=== PATIENT | female | born 1950 | race Caucasian/White ===

== ENCOUNTER → 2016-07-23 | Emergency (ER) | payer OTHER ==
--- NOTE | 2016-07-23 12:02 | ED ORDER SUMMARY ---
..... Patient: JULIUS CORDERO OrderSheet [facility] VisitID: [id number] [address] [place] [address] 66y, F Registration Date/Time: 07/23/2016 ORDER SHEET Weight: 70.3 kg (stated) Allergies: Keflex GENERAL ORDERS: MEDICATION ORDERS: Lidocaine Injection 2 % (soln) (NOW) (11:23 07/23/2016 Yeimy Benavidez) (Ack 12:00 Shivani R.NDonnie) (12:30 Jaime Lawton.NDonnie) IV FLUIDS: ORDER SHEET NOTES: [Electronically signed by Jessica Beck R.N. (12:54 07/23/2016)] [Electronically signed by Cyrus Mead Dr. (14:16 07/23/2016)] [Electronically locked/signed by Jessica Beck R.N. (12:54 07/23/2016)]
--- NOTE | 2016-07-23 12:02 | ED ORDER SUMMARY ---
..... Patient: JULIUS CORDERO OrderSheet [facility] VisitID: [id number] [address] [place] [address] 66y, F Registration Date/Time: 07/23/2016 ORDER SHEET Weight: 70.3 kg (stated) Allergies: Keflex GENERAL ORDERS: MEDICATION ORDERS: Lidocaine Injection 2 % (soln) (NOW) (11:23 07/23/2016 Yeimy Benavidez) (Ack 12:00 Shivani R.NDonnie) (12:30 Jaime Lawton.NDonnie) IV FLUIDS: ORDER SHEET NOTES: [Electronically signed by Jessica Beck R.N. (12:54 07/23/2016)] [Electronically signed by Cyrus Mead Dr. (14:16 07/23/2016)] [Electronically locked/signed by Jessica Beck R.N. (12:54 07/23/2016)]
--- NOTE | 2016-07-23 12:02 | ED NURSING NOTES ---
Clinical Report - Nurses [facility] [place] [address] 07/23/2016 11:06 [id number] TRI[facility] Triage time 11:14. Acuity: LEVEL 5. Chief Complaint: INJURY TO THE LEFT THUMB. LYN COMA SCORE: Lyn Coma Scale: 15- eyes open spontaneously (4); best verbal response- oriented x 4 (5); best motor response- obeys commands (6). --11:20 Jessica Beck R.N. 11:14 07/23/16. BP: 139/76. HR: 81. RR: 16. O2 saturation: 98%. Temp: 92 F. Pain level now: 08/03. Additional comments: 08/03 left thumb. --11:20 Jessica Beck R.N. Weight: 70.3 kg stated. Height/Length: 64 inches Per Patient. BMI: 26.6. --11:17 Jessica Beck R.N. Medications Gabapentin Oral 300 mg, 2x a day. --11:18 Jessica Beck R.N. Anastrozole Oral unknown. --11:19 Jessica Beck R.N. Allergies Keflex. --11:17 Jessica Beck R.N. History Arrived by private vehicle. Historian: patient. Accompanied by friend. ( Sliced thumb with a journal box inspector.). Treatment FRONT DESK MONITOR: (compression bandage). FALL RISK ASSESSMENT: Fall risk assessment completed. No fall risk identified. NUTRITIONAL RISK ASSESSMENT: The nutritional risk assessment revealed no deficiencies. FUNCTIONAL ASSESSMENT: Functional assessment: no impairments noted. LEARNING NEEDS ASSESSMENT: The learning needs assessment revealed no barriers. SKIN INTEGRITY ASSESSMENT: Skin integrity risk assessment completed. No skin integrity risk identified. --11:20 Jessica Beck R.N. PROBLEMS: Cancer. --11:20 Jessica Beck R.N. Assessment The patient states feels the same. --11:20 Jessica Beck R.N. Interventions ID band on patient. --11:20 Jessica Beck R.N. PHYSICAL ASSESSMENT Ambulatory to room. GENERAL / NEURO / PSYCH: Oriented X 4. Alert. She is in no distress. EXTREMITIES: Capillary refill is less than 2 seconds in the extremities. Extremity pulses are within normal limits. SKIN: Single medium-sized deep linear laceration to left thumb; 2.0 cm (11:23). --11:24 Jessica Beck R.N. NURSING PROGRESS NOTES Wound cleansed with Hibiclens. --11:24 Jessica Beck R.N. WOUND REPAIR: Wound repair performed by ED physician. Assisted by one nurse. The wound is located on the left thumb. The wound is clean and linear. Preparation: suture tray set-up with 2% lidocaine. Wound cleansed per physician with Hibiclens. Procedure: wound repaired with sutures (4 sutures). Post-procedure: she was stable, no complications, bleeding controlled, neuro-vascular status intact distal to wound, dressing applied and wound care instructions given. Total time of assist / procedure: 15 minutes. --12:24 Jessica Beck R.N. 12:05 07/23/2016 Lidocaine Injection. (Per ER physician). --12:30 Jessica Beck R.N. DISPOSITION / DISCHARGE Departure time: 12:25. Condition at departure: improved. The goals identified in the patient's plan of care were met. No learning barriers present. Discharge instructions provided and reviewed with the patient. Patient and primary care provider verbalized understanding. Written instructions provided in Czech. The patient was discharged by the physician. She was discharged home and accompanied by primary care provider. She left the Emergency Department ambulatory and via private vehicle. Diecast Machine Operator driving. FALL RISK ASSESSMENT: Fall risk assessment completed. No fall risk identified. --12:25 Jessica Beck R.N. 12:23 07/23/16. BP: 140/75. HR: 80. RR: 16. O2 saturation: 100%. Temp: 98.2 F. Pain level now: 0/10. --12:25 Jessica Beck R.N. Locked/Released at 07/23/2016 12:54 by Jessica Beck R.N.
--- NOTE | 2016-07-23 12:02 | ED NURSING NOTES ---
Clinical Report - Nurses [facility] [place] [address] 07/23/2016 11:06 [id number] TRIAGE Triage time 11:14. Acuity: LEVEL 5. Chief Complaint: INJURY TO THE LEFT THUMB. LYN COMA SCORE: Lyn Coma Scale: 15- eyes open spontaneously (4); best verbal response- oriented x 4 (5); best motor response- obeys commands (6). --11:20 Jessica Beck R.N. 11:14 07/23/16. BP: 139/76. HR: 81. RR: 16. O2 saturation: 98%. Temp: 92 F. Pain level now: 08/03. Additional comments: 08/03 left thumb. --11:20 Jessica Beck R.N. Weight: 70.3 kg stated. Height/Length: 64 inches Per Patient. BMI: 26.6. --11:17 Jessica Beck R.N. Medications Gabapentin Oral 300 mg, 2x a day. --11:18 Jessica Beck R.N. Anastrozole Oral unknown. --11:19 Jessica Beck R.N. Allergies Keflex. --11:17 Jessica Beck R.N. History Arrived by private vehicle. Historian: patient. Accompanied by friend. ( Sliced thumb with a steam box operator.). Treatment VARIOUS EXCEPTIONALITIES TEACHER: (compression bandage). FALL RISK ASSESSMENT: Fall risk assessment completed. No fall risk identified. NUTRITIONAL RISK ASSESSMENT: The nutritional risk assessment revealed no deficiencies. FUNCTIONAL ASSESSMENT: Functional assessment: no impairments noted. LEARNING NEEDS ASSESSMENT: The learning needs assessment revealed no barriers. SKIN INTEGRITY ASSESSMENT: Skin integrity risk assessment completed. No skin integrity risk identified. --11:20 Jessica Beck R.N. PROBLEMS: Cancer. --11:20 Jessica Beck R.N. Assessment The patient states feels the same. --11:20 Jessica Beck R.N. Interventions ID band on patient. --11:20 Jessica Beck R.N. PHYSICAL ASSESSMENT Ambulatory to room. GENERAL / NEURO / PSYCH: Oriented X 4. Alert. She is in no distress. EXTREMITIES: Capillary refill is less than 2 seconds in the extremities. Extremity pulses are within normal limits. SKIN: Single medium-sized deep linear laceration to left thumb; 2.0 cm (11:23). --11:24 Jessica Beck R.N. NURSING PROGRESS NOTES Wound cleansed with Hibiclens. --11:24 Jessica Beck R.N. WOUND REPAIR: Wound repair performed by ED physician. Assisted by one nurse. The wound is located on the left thumb. The wound is clean and linear. Preparation: suture tray set-up with 2% lidocaine. Wound cleansed per physician with Hibiclens. Procedure: wound repaired with sutures (4 sutures). Post-procedure: she was stable, no complications, bleeding controlled, neuro-vascular status intact distal to wound, dressing applied and wound care instructions given. Total time of assist / procedure: 15 minutes. --12:24 Jessica Beck R.N. 12:05 07/23/2016 Lidocaine Injection. (Per ER physician). --12:30 Jessica Beck R.N. DISPOSITION / DISCHARGE Departure time: 12:25. Condition at departure: improved. The goals identified in the patient's plan of care were met. No learning barriers present. Discharge instructions provided and reviewed with the patient. Patient and reset merchandiser verbalized understanding. Written instructions provided in Urdu. The patient was discharged by the physician. She was discharged home and accompanied by reset merchandiser. She left the Emergency Department ambulatory and via private vehicle. Supplier Quality Engineering Manager driving. FALL RISK ASSESSMENT: Fall risk assessment completed. No fall risk identified. --12:25 Jessica Beck R.N. 12:23 07/23/16. BP: 140/75. HR: 80. RR: 16. O2 saturation: 100%. Temp: 98.2 F. Pain level now: 0/10. --12:25 Jessica Beck R.N. Locked/Released at 07/23/2016 12:54 by Jessica Beck R.N.
--- NOTE | 2016-07-23 12:02 | ED CLINICAL REPORT ---
Clinical Report - Physicians/Mid Levels [facility] [address] [place] [address] 07/23/2016 11:06 [id number] Time Seen: 11:15; initial patient contact. Arrived- By private vehicle. Historian- patient. HISTORY OF PRESENT ILLNESS Chief Complaint: Injury to the left thumb. The injury happened just prior to arrival. The patient sustained a laceration from a knife. Occurred at work. Patient is experiencing mild pain. Patient denies injury to the head or neck. REVIEW OF SYSTEMS The patient sustained a laceration. No tingling, numbness or foreign body. All systems otherwise negative, except as recorded above. PAST HISTORY Cancer. The patient's dominant hand is the right. Tetanus immunization status is up-to-date. Surgeries: No history of previous surgery. Additional Surgeries: no known surgeries. Medications: Anastrozole Oral unknown. Gabapentin Oral 300 mg, 2x a day. Allergies: Keflex. SOCIAL HISTORY Smoker - current status unknown. ADDITIONAL NOTES The nursing notes have been reviewed. PHYSICAL EXAM Vital Signs: 07/23/2016 11:14 BP: 139/76. HR: 81. RR: 16. O2 saturation: 98%. Temp: 92 F. Pain level now: 6/10. Have been reviewed and do not appear to be correct. Blood pressure normal. Heart rate normal. Respiratory rate normal. Oxygen saturation normal. Appearance: Alert. Oriented X3. No acute distress. Skin: Skin warm and dry. Extremities: Right thumb: subcutaneous 2.5 cm laceration of the dorsal aspect and proximal phalanx. Neurovascular intact distally. No limitation in movement. No wrist injury. Hand and wrist exam otherwise negative. Extremities otherwise negative. Neuro, Vascular and Tendons: Vascular status intact. Sensation intact. Motor intact. Tendon function intact. Neuro: Oriented X 3. No motor deficit. No sensory deficit. PROGRESS AND PROCEDURES Digital Nerve Block - Finger: Time: 12:00. Per protocol, time-out completed immediately before the procedure. Digital nerve block performed on the left thumb. Dorsal approach utilized. Landmarks identified. Skin prepped. Total volume of 3 mL 2% Lidocaine infiltrated via two punctures using a 27-gauge needle. Patient cooperative during procedure. No complications encountered. Excellent anesthesia achieved. Laceration Repair: Time: 12:01. Location: left thumb. Per protocol, time-out completed immediately before the procedure. Length: 2.5cm. Complexity: simple (sutured). Wound depth/shape- subcutaneous and linear. Wound is clean. Distal neuro/vascular/tendon status normal. Anesthesia provided by digital block using 2% lidocaine (3 mL). Prepped with Hibiclens. Wound explored, cleansed and examined to the base in bloodless field with normal saline. Closure of skin: 4-0 Prolene (4 sutures). Post-procedure: she is stable and there are no complications. Bleeding is controlled and neuro-vascular status is intact distal to the wound. Dressing applied. Tetanus immunization up-to-date. Estimated blood loss: 4 mL. Disposition: Discharged home in good and improved condition. Condition: good. CLINICAL IMPRESSION Single deep laceration to the left thumb.Treatment of laceration not delayed. No infection, foreign body present or left fingernail injury. INSTRUCTIONS Protect wound and keep wound area clean. You may wash wounds briefly, then dry. Apply bacitracin twice daily. Sutures/parrish should be removed in seven days. Do not work today, tomorrow. Your Current Medications: CONTINUE TAKING THE FOLLOWING MEDICATIONS: Anastrozole Oral : unknown. Gabapentin Oral : 300 mg 2x a day. Follow-up: Follow up with your doctor in seven days for suture removal. Call for an appointment. Screening today revealed the patient's blood pressure to be in the pre-hypertensive range. The patient should follow up with a primary care provider for blood pressure management. (Electronically signed by Cyrus Mead Dr. 07/23/2016 14:16)
--- NOTE | 2016-07-23 14:16 | ED MAR SUMMARY ---
..... Medication Administration Record [facility] [address] [place] [address] Patient: JULIUS CORDERO Visit ID: [id number] 66y, F Weight: 70.3 kg Height/Length: 64 in BMI: 26.6 ALLERGIES: Keflex Given 12:05 07/23/2016 Jessica Beck R.N. Medication Administered: LIDOCAINE [INJECTION], Dose: Injection. Medication Ordered: Lidocaine Injection 2 % (soln) (NOW).
--- NOTE | 2016-07-23 14:16 | ED MED RECONCILIATION SUMMARY ---
Patient: JULIUS CORDERO Medication Reconciliation Report [facility] VisitID: [id number] [address] [place] [address] 66y, F Registration Date/Time: 07/23/2016 Weight: 70.3 kg Height/Length: 64 in. BMI: 26.6 ALLERGIES: Keflex The patient's Home Medications are listed below: CONTINUE TAKING THE FOLLOWING MEDICATIONS: Anastrozole Oral unknown Gabapentin Oral 300 mg, 2x a day The source(s) of the original Home Medication information: Not obtained. The following Medications were given to the patient in the Emergency Department: Lidocaine [Injection] Injection, administered: 07/23/2016 12:05:00 PM The following Medications were prescribed to the patient: None.
--- NOTE | 2016-07-23 14:16 | ED DISCHARGE INSTRUCTIONS ---
Patient: JULIUS CORDERO General Instructions [facility] VisitID: [id number] [place] [address] 66y, F Registration Date/Time: 07/23/2016 Single deep laceration to the left thumb.Treatment of laceration not delayed. No infection, foreign body present or left fingernail injury. INSTRUCTIONS Protect wound and keep wound area clean. You may wash wounds briefly, then dry. Apply bacitracin twice daily. Sutures/parrish should be removed in seven days. Do not work today, tomorrow. Your Current Medications: CONTINUE TAKING THE FOLLOWING MEDICATIONS: Anastrozole Oral : unknown. Gabapentin Oral : 300 mg 2x a day. Follow-up: Follow up with your doctor in seven days for suture removal. Call for an appointment. Screening today revealed the patient's blood pressure to be in the pre-hypertensive range. The patient should follow up with a primary care provider for blood pressure management. ADDITIONAL INFORMATION Laceration (All Closures) Alaceration is a cut through the skin. This will usually require stitches (sutures) or parrish if it is deep. Minor cuts may be treated with a surgical tape closure orskin glue. Home care The following guidelines will help you care for your laceration at home: Extremity, face, or trunk wounds Keep the wound clean and dry. If a bandage was applied and it becomes wet or dirty, replace it. Otherwise, leave it in place for the first 24 hours. If stitches or parrish were used, clean the wound daily. After removing the bandage, wash the area with soap and water. Use a wet cotton swab to loosen and remove any blood or crust that forms. The doctor may prescribe an antibiotic cream or ointment to prevent infection. Do not stop taking this medication until you have finished the prescribed course or the doctor tells you to stop. The doctor may also prescribe medications for pain. Follow the doctors instructions for taking these medications. You may remove the bandage to shower as usual after the first 24 hours, but do not soak the area in water (no swimming) until the stitches or parrish are removed. If surgical tape was used, keep the area clean and dry. If it becomes wet, blot it dry with a towel. If skin glue was used, do not scratch, rub, or pick at the adhesive film. Do not place tape directly over the film. Do not apply liquid, ointment, or creams to the wound while the film is in place. Do not clean the wound with peroxide and do not apply ointments. Avoid activities that cause heavy sweating until the film has fallen off. Protect the wound from prolonged exposure to sunlight or tanning lamps. You may shower as usual but do not soak the wound in water (no baths or swimming). The film will fall off by itself in 510 days. Scalp wounds During the first two days, you may carefully rinse your hair in the shower to remove blood, glass or dirt particles. After two days, you may shower and shampoo your hair normally. Do not soak your scalp in the tub or go swimming until the stitches or parrish have been removed. Talk with your doctor before applying any antibiotic ointment to the wound. Mouth wounds Eat soft foods to reduce pain. If the cut is inside of your mouth, clean by rinsing after each meal and at bedtime with a mixture of equal parts water and hydrogen peroxide (do not swallow!). Or, you can use a cotton swab to directly apply hydrogen peroxide onto the cut. Mouth wounds can be painful when eating. You may use an [id number] local numbing solution for pain relief. If this is not available, you may use any numbing solution for teething babies. You may apply this directly to the sores with a cotton-tip swab or with your finger. Follow-up care Follow up with your health care provider. Most skin wounds heal within ten days. Mouth and facial wounds heal within five days. However, even with proper treatment, a wound infection may sometimes occur. Therefore, you should check the wound daily for signs of infection listed below. Stitches should be removed from the face within five days; stitches and parrish should be removed from other parts of the body within 714 days. If dissolving stitches were used in the mouth, these will fall out or dissolve without the need for removal. If tape closures were used, remove them yourself if they have not fallen off after 7 days. Ifskin glue was used, the film will fall off by itself in 510 days. When to seek medical care Get prompt medical attention if any of these occur: Bleeding not controlled by direct pressure Signs of infection, including increasing pain in the wound, increasing wound redness or swelling, or pus coming from the wound Fever of 100.4F (38C) or higher, or as directed by your health care provider Stitches or parrish come apart or fall out or surgical tape falls off before 7 days Wound edges re-open Bandage Change If the bandage becomes wet or dirty, replace it. Otherwise, leave it in place for the first 24 hours. Then once a day: After removing the bandage, wash the area with soap and water. Use a wet cotton swab to loosen and remove any blood or crust that forms on the wound. After cleaning, apply a thin layer of antibiotic ointment or cream. Reapply the bandage. You may shower as usual after the first 24 hours. If the bandage is on an arm or leg, cover it with a plastic bag rubber banded at both ends before showering. No tub baths or swimming until the bandage is removed and the wound healed (at least 7 days). You have been given the following additional information: Laceration, All Dressing Change Do not work today, tomorrow. (Electronically signed by Cyrus Mead Dr. 07/23/2016 14:16)
--- NOTE | 2016-07-23 14:16 | ED MED RECONCILIATION SUMMARY ---
Patient: JULIUS CORDERO Medication Reconciliation Report [facility] VisitID: [id number] [address] [place] [address] 66y, F Registration Date/Time: 07/23/2016 Weight: 70.3 kg Height/Length: 64 in. BMI: 26.6 ALLERGIES: Keflex The patient's Home Medications are listed below: CONTINUE TAKING THE FOLLOWING MEDICATIONS: Anastrozole Oral unknown Gabapentin Oral 300 mg, 2x a day The source(s) of the original Home Medication information: Not obtained. The following Medications were given to the patient in the Emergency Department: Lidocaine [Injection] Injection, administered: 07/23/2016 12:05:00 PM The following Medications were prescribed to the patient: None.
--- NOTE | 2016-07-23 14:16 | ED MAR SUMMARY ---
..... Medication Administration Record [facility] [address] [place] [address] Patient: JULIUS CORDERO Visit ID: [id number] 66y, F Weight: 70.3 kg Height/Length: 64 in BMI: 26.6 ALLERGIES: Keflex Given 12:05 07/23/2016 Jessica Beck R.N. Medication Administered: LIDOCAINE [INJECTION], Dose: Injection. Medication Ordered: Lidocaine Injection 2 % (soln) (NOW).
== END ==
LOC: ED SRH 11:04
DX: S61.012A Laceration without foreign body of left thumb without damage to nail, initial encounter (principal); W26.0XXA Contact with knife, initial encounter; Y93.9 Activity, unspecified; Y99.0 Civilian activity done for income or pay; Y92.89 Other specified places as the place of occurrence of the external cause; Z79.899 Other long term (current) drug therapy; Z88.1 Allergy status to other antibiotic agents